=== PATIENT | male | born 1975 | race Caucasian/White ===

== ENCOUNTER 2020-08-05 15:32 | Emergency (ER) | payer BC ==
[~2020-08-05] VITALS: Ht 175.3 cm; Wt 102.1 kg
[~2020-08-05 15:32] MED LIST: ASPIRIN81 MG PO; ATORVASTATIN CA20 MG PO; LEVOTHYROXINE112 MCG PO; LISINOPRIL2.5 MG PO; METOPROLOL TART25 MG PO; SYNTHROID200 MCG PO
[2020-08-05] MEDS ORDERED: DONNATAL/LIDOCAINE/MAALOX 30 ML SUSP PO ONE (15:36)
[2020-08-05] MEDS ORDERED: ASPIRIN 81 MG CHEW TAB PO ONE (15:45)
[2020-08-05 16:02] LABS: BASOPHILS # (AUTO) 0.1 (0.0-0.1); BASOPHILS % 1.3 % (0.0-1.0); EOSINOPHILS # (AUTO) 0.2 (0.0-0.4); EOSINOPHILS % 2.5 % (0.0-6.0); HEMOGLOBIN 14.2 g/dL (14.0-18.0); LYMPHOCYTES % 28.4 % (18.0-39.1); MEAN CORPUSCULAR HEMOGLOBIN 30.3 pg (28-32); MEAN CORPUSCULAR VOLUME 91.9 fL (81-99); MONOCYTES # (AUTO) 0.5 (0.2-0.8); NEUTROPHILS # (AUTO) 4.2 (2.1-6.9); NEUTROPHILS % 60.7 % (38.7-80.0); PLATELET COUNT 235 x10e3/uL (140-360); RED BLOOD COUNT 4.68 x10e6/uL (4.3-5.7); RED CELL DISTRIBUTION WIDTH 13.6 % (11.7-14.4)
[2020-08-05 16:29] LABS: ALANINE AMINOTRANSFERASE 30 IU/L (0-55); ALBUMIN 3.8 g/dL (3.5-5.0); ALBUMIN/GLOBULIN RATIO 1.1 (0.8-2.0); ALKALINE PHOSPHATASE 81 IU/L (40-150); ANION GAP 13.8 mmol/L (8-16); BLOOD UREA NITROGEN 13 mg/dL (7-26); BUN/CREATININE RATIO 12 (6-25); CALCIUM 9.5 mg/dL (8.4-10.2); CARBON DIOXIDE 28 mmol/L (22-29); CHLORIDE 105 mmol/L (98-107); CREATINE KINASE 21 IU/L (30-200); CREATININE, SERUM 1.06 mg/dL (0.72-1.25); EST GLOMERULAR FILTRATION RATE > 60 ML/MIN (60-); GLUCOSE 100 mg/dL (74-118); POTASSIUM 3.8 mmol/L (3.5-5.1); SODIUM 143 mmol/L (136-145)
== END 2020-08-05 17:13 | disposition home or self-care (01) ==
LOC: ER 16:23
DX: R10.13 Epigastric pain (principal); R07.89 Other chest pain; R06.02 Shortness of breath; R94.31 Abnormal electrocardiogram [ECG] [EKG]; I44.7 Left bundle-branch block, unspecified; E78.5 Hyperlipidemia, unspecified
CPT/HCPCS: 36415; 74022; 80053; 82550; 82553; 83690; 84484; 85025; 93005; 99284